=== PATIENT | male | born 1985 | race Hispanic/Latino ===

== ENCOUNTER 2023-01-09 05:07 | Emergency (ER) | payer OTHER ==
[~2023-01-09] VITALS: Ht 170.2 cm; Wt 104.3 kg
[2023-01-09] MEDS ORDERED: KETOROLAC TROMETHAMINE 60 MG/2 ML VIAL ONE (05:24)
[2023-01-09] MEDS ORDERED: KETOROLAC TROMETHAMINE 60 MG/2 ML VIAL IM ONE (05:30)
[2023-01-09] MEDS ORDERED: HYDROCODONE/APAP 5MG-325MG TAB ONE (05:55)
[2023-01-09] MEDS ORDERED: HYDROCODONE/APAP 5MG-325MG TAB PO ONE (06:00)
[2023-01-09] MEDS ORDERED: HYDROCODON-ACE1 EA11 PO (06:17)
[2023-01-09 07:25] VITALS: BP 124/76
[2023-01-13] MEDS ORDERED: IBUPROFEN200 MG PO (09:40)
[2023-01-13] MEDS ORDERED: PRILOSEC OTC20 MG PO (09:40)
== END 2023-01-09 07:25 | disposition home or self-care (01) ==
LOC: ER 05:10
DX: S82.892A Other fracture of left lower leg, initial encounter for closed fracture (principal); S82.492A Other fracture of shaft of left fibula, initial encounter for closed fracture; X50.1XXA Overexertion from prolonged static or awkward postures, initial encounter; Y93.01 Activity, walking, marching and hiking; Y92.89 Other specified places as the place of occurrence of the external cause
CPT/HCPCS: 27752; 73610; 99284; J1885

== ENCOUNTER 2023-01-13 11:44 | Observation (INO) | payer OTHER ==
[~2023-01-13] VITALS: Ht 170.2 cm; Wt 109.9 kg
[~2023-01-13 11:44] MED LIST: HYDROCODON-ACE1 EA11 PO; IBUPROFEN200 MG PO; PRILOSEC OTC20 MG PO
[2023-01-13] MEDS ORDERED: LACTATED RINGER'S 1,000 ML ONE (12:20)
[2023-01-13] MEDS ORDERED: CEFAZOLIN SODIUM 2 GM ONE (12:31)
[2023-01-13] MEDS ORDERED: LIDOCAINE HCL 2% LOCAL INJ 5 ML SDV VIAL INJ ONE (13:06)
[2023-01-13] MEDS ORDERED: SUCCINYLCHOLINE CHLORIDE 20 MG/ML 10ML VIAL ONE (13:06)
[2023-01-13] MEDS ORDERED: PHENYLEPHRINE HCL 1% 10 MG/ML VIAL ONE (13:06)
[2023-01-13] MEDS ORDERED: ONDANSETRON HCL INJ 2MG/ML 2ML 2 MG/ML VIAL ONE (13:06)
[2023-01-13] MEDS ORDERED: POVIDONE IODINE 0.05% 0.05 % ML PO ONE (13:06)
[2023-01-13] MEDS ORDERED: DEXAMETHASONE SOD PHOS INJ 4 MG/ML SDV ONE (13:06)
[2023-01-13] MEDS ORDERED: ROCURONIUM BROMIDE 10 MG/ML 5ML VIAL IV ONE (13:06)
[2023-01-13] MEDS ORDERED: SEVOFLURANE INHAL SOLN 250 ML PEN BTL ONE (13:06)
[2023-01-13] MEDS ORDERED: KETOROLAC TROMETHAMINE 30 MG/ML VIAL ONE (13:06)
[2023-01-13] MEDS ORDERED: PROPOFOL IV EMULSION 10 MG/ML 20 ML VIAL ONE (13:06)
[2023-01-13] MEDS ORDERED: BUPIVACAINE 0.5%/EPI 30 ML SDV INJ ONE (13:35)
[2023-01-13] MEDS ORDERED: Vancomycin IV 1 GM VIAL ONE (13:36)
[2023-01-13] MEDS ORDERED: FENTANYL CITRATE/PF 100MCG/2 ML INJ ONE ×2 (13:49→13:52)
[2023-01-13] MEDS ORDERED: MIDAZOLAM HCL 2 MG/2 ML VIAL ONE (13:52)
[2023-01-13] MEDS ORDERED: SUGAMMADEX SODIUM 200 MG/2 ML VIAL IV ONE ×2 (14:33→17:06)
[2023-01-13] MEDS ORDERED: ALBUTEROL SULF 0.083% NEB SOLN 3 ML NEB ONE (16:15)
[2023-01-13] MEDS ORDERED: NALOXONE HCL INJ 0.4 MG/ML AMP ONE ×2 (16:23→16:44)
[2023-01-13] MEDS ORDERED: FLUMAZENIL 0.5MG/ 5ML VIAL ONE (16:32)
[2023-01-13 17:23] LABS: ABG HCO3 26 mmol/L (22-26); ABG PCO2 42 mmHg (35-45); ABG PH 7.39 (7.35-7.45); ABG PO2 189 mmHg (80-105); ABG TCO2 27
[2023-01-13 20:06] LABS: BASOPHILS % 0.1 % (0.0-1.0); HEMATOCRIT 41.6 % (38.2-49.6); HEMOGLOBIN 13.5 g/dL (14.0-18.0); LYMPHOCYTES # (AUTO) 0.9 (1.0-3.2); LYMPHOCYTES % 4.1 % (18.0-39.1); MEAN CORPUSCULAR HEMOGLOBIN 27.8 pg (28-32); MEAN CORPUSCULAR HGB CONC 32.5 g/dL (31-35); MEAN CORPUSCULAR VOLUME 85.8 fL (81-99); MONOCYTES # (AUTO) 0.2 (0.2-0.8); MONOCYTES % 1.1 % (4.4-11.3); NEUTROPHILS # (AUTO) 19.7 (2.1-6.9); NEUTROPHILS % 94.2 % (38.7-80.0); PLATELET COUNT 287 x10e3/uL (140-360); RED BLOOD COUNT 4.85 x10e6/uL (4.3-5.7); RED CELL DISTRIBUTION WIDTH 13.6 % (11.7-14.4)
[2023-01-13 20:13] VITALS: BP 125/109
[2023-01-13] MEDS ORDERED: HYDROCODONE/APAP 5MG-325MG TAB PO PRN (20:15)
[2023-01-13] MEDS ORDERED: ZOLPIDEM TARTRATE 5 MG TAB PO PRN (20:15)
[2023-01-13] MEDS ORDERED: Morphine 4mg INJECTION 4 MG/ML INJ IV PRN (20:15)
[2023-01-13 20:25] LABS: ALBUMIN 3.6 g/dL (3.5-5.0); ALBUMIN/GLOBULIN RATIO 1.1 (0.8-2.0); ANION GAP 15.4 mmol/L (8-16); CALCIUM 9.1 mg/dL (8.4-10.2); CREATININE, SERUM 0.85 mg/dL (0.72-1.25); POTASSIUM 4.4 mmol/L (3.5-5.1)
[2023-01-13 22:40] VITALS: BP 125/109
[2023-01-14 00:54] VITALS: BP 125/69
[2023-01-14] MEDS: HYDROCODONE/APAP 5MG-325MG TAB PO PRN ×3 (03:34→16:37)
[2023-01-14 05:13] VITALS: BP 114/69
[2023-01-14] MEDS ORDERED: PANTOPRAZOLE SOD 40 MG TABEC PO SCH (07:30)
[2023-01-14 08:00] VITALS: BP 114/69
[2023-01-14 08:01] VITALS: BP 114/69
[2023-01-14 08:05] VITALS: BP 124/78
[2023-01-14] MEDS ORDERED: HYDROCODON-ACE1 EA11 PO (08:22)
[2023-01-14 09:26] LABS: BASOPHILS % 0.1 % (0.0-1.0); HEMATOCRIT 38.2 % (38.2-49.6); HEMOGLOBIN 12.4 g/dL (14.0-18.0); LYMPHOCYTES # (AUTO) 1.7 (1.0-3.2); MEAN CORPUSCULAR HEMOGLOBIN 27.4 pg (28-32); MEAN CORPUSCULAR HGB CONC 32.5 g/dL (31-35); MEAN CORPUSCULAR VOLUME 84.5 fL (81-99); MONOCYTES # (AUTO) 0.8 (0.2-0.8); NEUTROPHILS # (AUTO) 18.2 (2.1-6.9); NEUTROPHILS % 87.5 % (38.7-80.0); PLATELET COUNT 302 x10e3/uL (140-360); RED BLOOD COUNT 4.52 x10e6/uL (4.3-5.7); RED CELL DISTRIBUTION WIDTH 13.7 % (11.7-14.4)
[2023-01-14 11:40] VITALS: BP 132/68
== END 2023-01-14 17:20 | disposition home or self-care (01) ==
LOC: OR 11:44 → INTOOBSV 19:40 → ICU 19:40 → MED/SURG 21:59
PROVIDERS: ADMIT Internal Medicine; ATTEND Internal Medicine
DX: J95.821 Acute postprocedural respiratory failure (principal); Z72.0 Tobacco use; S82.842A Displaced bimalleolar fracture of left lower leg, initial encounter for closed fracture; S93.492A Sprain of other ligament of left ankle, initial encounter; W01.0XXA Fall on same level from slipping, tripping and stumbling without subsequent striking against object, initial encounter; E66.09 Other obesity due to excess calories; Z68.38 Body mass index [BMI] 38.0-38.9, adult; Z01.812 Encounter for preprocedural laboratory examination; Z20.822 Contact with and (suspected) exposure to COVID-19
CPT/HCPCS: 0223U; 27768; 27792; 27829; 36415 ×2; 36600; 71045; 76000; 80053; 82805; 85025 ×2; 94640; 94660; 94799 ×2; C1713 ×6; G0378 ×2; J0330; J1100; J1885; J2001; J2250; J2310; J2370; J2405; J2704; J3010; J3370; J7121; S0164